=== PATIENT | male | born 1955 | race Caucasian/White ===

== ENCOUNTER → 2016-12-09 | Outpatient (CLI) | payer MEDICAID ==
[2016-12-09 09:19] LABS: HEMOGLOBIN 14.5 g/dL (14.1-18.0); LYMPH # 2.1 K/mm3 (0.7-4.5); LYMPH % 28.8 % (10-50)
--- NOTE | 2016-12-09 10:34 | RADIOLOGY REPORT PS360 ---
KNEE-4 OR 5 VIEWS-LT HISTORY: RAMIRO KNEE PAIN ORDERING PHYSICIAN: Ebony Hinson PATIENT AGE: 61 years COMPARISON: None FINDINGS: Weightbearing views performed including AP, Pérez, lateral view, and patellar view No fracture or dislocation. No lytic or blastic change. Normal mineralization. No significant arthritic changes evident. No other significant findings IMPRESSION: Negative left Knee
--- NOTE | 2016-12-09 10:34 | RADIOLOGY REPORT PS360 ---
KNEE-4 OR 5 VIEWS-RT HISTORY: RAMIRO KNEE PAIN ORDERING PHYSICIAN: Ebony Hinson PATIENT AGE: 61 years COMPARISON: None FINDINGS: Weightbearing views performed including a Pérez, AP, and lateral view along with a patellar view. No fracture or dislocation. No lytic or blastic change. Normal mineralization. No significant arthritic changes evident. No other significant findings IMPRESSION: Negative right Knee
[2016-12-09 15:02] LABS: BUN 18 mg/dL (7-18); GFR (ESTIMATED) 62 ML/MIN (>60)
== END ==
LOC: LAB 09:01
PROVIDERS: Nurse Practitioner Family
DX: I10 Essential (primary) hypertension (principal); R00.1 Bradycardia, unspecified; M25.561 Pain in right knee; M25.562 Pain in left knee

== ENCOUNTER → 2017-05-04 | Outpatient (CLI) | payer MEDICAID ==
[2017-05-04 12:44] LABS: BUN 28 mg/dL (7-18); GFR (ESTIMATED) 62 ML/MIN (>60)
[2017-05-04 14:27] LABS: HEMOGLOBIN 14.3 g/dL (14.1-18.0)
[2017-05-04 14:28] LABS: LYMPH # 2.3 K/mm3 (0.7-4.5)
== END ==
LOC: LAB 11:44
PROVIDERS: Nurse Practitioner Family
DX: R07.89 Other chest pain (principal); R42 Dizziness and giddiness